=== PATIENT | male | born 1965 | race African-American/Black ===

== ENCOUNTER 2021-10-15 19:09 | Emergency (ER) | payer MEDICAID, SELFPAY ==
[~2021-10-15] VITALS: Ht 172.7 cm; Wt 103.4 kg
--- NOTE | 2021-10-15 19:11 | NUR ---
Patient triaged and placed in waiting room. VSS and patient appears in no acute distress at this time. Accompanied by self, awaiting available bed, and MD notified of need for MSE.
--- NOTE | 2021-10-15 19:12 | NUR ---
Report given to Dr Peterson
--- NOTE | 2021-10-15 19:12 | NUR ---
Pt brought by self, ambulatory, A&Ox4, pt presents to ER with double vision x 3 days, states he has not being taking his diabetes medications or blood pressure medications for the last 10 months, states he did not have insurange coverage, pt BP 174/113, O2 98 %,BS 334 , skin pink and warm, cap refill <3, respirations even and unlabored.
[2021-10-15 19:22] VITALS: BP_SYST 174
--- NOTE | 2021-10-15 20:35 | NUR ---
Dr Peterson evaluating patient in the [facility]
--- NOTE | 2021-10-15 21:00 | NUR ---
PT COMPLAINT OF DIZZYNESS WITH SEVERE BLURRY VISION THAT HAS WORSENED IN THE LAST FOUR DAYS. PT REPORTS NOT TAKING PRESCRIBED MEDICATIONS FOR THE LAST 10 MONTHS DUE TO NOT HAVING MEDICAL INSURANCE. PT DENIES N/V, CHEST PAIN, OR SHORTNESS OF BREATH. PT NOTED TO HAVE DIFFICULTY AMBULATING DUE TO IMPAIRED VISION. PT REPORTS HX OF DM II, HTN, AND OBESITY. PT REPORTS LOOSING 100 LBS SINCE 2019. WILL CONTINUE TO MONITOR
[2021-10-15 21:51] LABS: BILIRUBIN,URINE NEGATIVE (NEGATIVE); CLARITY/URINE CLEAR (CLEAR); COLOR,URINE YELLOW (YELLOW); GLUCOSE,URINE 3+ (NEGATIVE); KETONES,URINE 1+ (NEGATIVE); LEUKOCYTE ESTERASE ,URINE NEGATIVE (NEGATIVE); NITRITE, URINE NEGATIVE (NEGATIVE); PROTEIN URINE 2+ (NEGATIVE); UROBILINOGEN,URINE 0.2 (0.2-1.0)
[2021-10-15 21:52] LABS: BASOPHILS # (AUTO) 0.1 K/uL (0.0-0.2); BASOPHILS % (AUTO) 0.7 % (0.0-2.0); EOSINOPHILS # (AUTO) 0.1 K/uL (0.0-0.4); HEMATOCRIT 46.9 % (36-54); HEMOGLOBIN 15.6 g/dL (14.0-18.0); LYMPHOCYTES # (AUTO) 4.4 K/uL (1.0-5.5); LYMPHOCYTES % (AUTO) 32.4 % (20.5-51.5); MEAN CORPUSCULAR HEMOGLOBIN 30 pg (27-31); MEAN CORPUSCULAR HGB CONC 33 % (32-36); MEAN CORPUSCULAR VOLUME 89 fL (79.0-98.0); MONOCYTES # (AUTO) 0.8 K/uL (0.0-1.0); MONOCYTES % (AUTO) 5.9 % (1.7-9.3); NEUTROPHILS # (AUTO) 8.1 K/uL (1.8-7.7); PLATELET COUNT (AUTO) 241 K/uL (130-430); RED BLOOD CELL COUNT(AUTO) 5.26 MIL/uL (4.2-6.2); RED CELL DISTRIBUTION WIDTH 13.6 % (9.0-15.0); WHITE BLOOD COUNT (AUTO) 13.4 K/uL (4.8-10.8)
[2021-10-15 21:54] LABS: BLOOD, URINE TRACE (NEGATIVE)
[2021-10-15] MEDS ORDERED: IOHEXOL 350 mgI/mL, 150 ML INFUS..BTL IV ONE (21:59)
[2021-10-15 22:04] LABS: BACTERIA,URINE FEW /HPF (None Seen); RBC,URINE 0-3 /HPF (0-3); WBC,URINE 0-3 /HPF (0-3)
[2021-10-15 22:06] LABS: CREATININE 0.87 mg/dL (0.55-1.30)
[2021-10-15 22:06] LABS: BARBITURATE, URINE NEGATIVE (NEG <=200); BENZODIAZEPINE, URINE NEGATIVE (NEG <=150); CANNABINOID, URINE NEGATIVE (NEG <=50); COCAINE, URINE NEGATIVE (NEG <=150); METHAMPHETAMINES SCREEN,URINE NEGATIVE (NEG <=500); OPIATE, URINE NEGATIVE (NEG <=100); PHENCYCLIDINE SCREEN,URINE NEGATIVE (NEG <=25); UR TRICYCLIC ANTIDEPRESSANTS NEGATIVE (NEG <=300); URINE AMPHETAMINE NEGATIVE (NEG <=500); URINE METHADONE NEGATIVE (NEG <=200); URINE OXYCODONE SCREEN NEGATIVE (NEG <=100); URINE PROPOXYPHENE SCREEN NEGATIVE (NEG <=300)
--- NOTE | 2021-10-15 22:12 | NUR ---
AT THE BEDSIDE FOR FOLLOW UP. PT REPORTED TO MD THAT HE DOES NOT WANT TO BE ADMITTED OVERNIGHT FOR FULL WORK UP. PT REPORTS BEING CONCERED ABOUT FURTHER TESTING, BECAUSE HE HAS TO GO TO A NEW JOB TOMORROW. PT UNDERSTANDS THE RISKS AND BENEFITS OF NOT STAYING OVERNIGHT FOR ADMISSION, AND STATED HE WILL RETURN FOR FURTHER MEDICAL SUPPORT SOON.
[2021-10-15 22:14] LABS: TOTAL BILIRUBIN 0.8 mg/dL (0.0-1.0)
[2021-10-15 22:37] LABS: POTASSIUM 2.8 mmol/L (3.5-5.1)
[2021-10-15] MEDS ORDERED: POTASSIUM CHLORIDE 20 MEQ/PKT PACKET PO ONE (23:45)
[2021-10-15] MEDS ORDERED: INSULIN REGULAR, HUMAN 10 UNITS/0.1 ML INJ SUBCUT ONE (23:45)
[2021-10-15] MEDS ORDERED: NACL 0.9% 1,000 ML IV ONE (23:45)
--- NOTE | 2021-10-16 | NUR ---
BP ELEVATED AT 191/101, MD MADE AWARE. PT ASYMPTOMATIC AT THIS TIME, WILL CONTINUE TO MONITOR CLOSELY.
--- NOTE | 2021-10-16 01:49 | NUR ---
PT REPORTS VISION IMPROVEMENT AND RELIEF FROM DIZZYNESS. CONTINUOUS CARDIAC MONITORING IN PLACE. PT STABLE AT THIS TIME. AWAITING DISPOSITION. WILL MONITOR NEEDED
[2021-10-16] MEDS ORDERED: hydrALAZINE HCL 20 MG/ML VIAL IVP ONE (02:15)
[2021-10-16] MEDS ORDERED: LABETALOL 100 MG/ 20ML VIAL IVP ONE (03:45)
--- NOTE | 2021-10-16 03:58 | NUR ---
PT DECIDED TO LEAVE ED DUE TO PRESSING PERSONAL PROBLEMS. AWARE OF PATIENT INTENTIONS OF LEAVING AMA. PT INFORMED OF POSSIBLE RISKS AND CONSEQUENCES OF LEAVING THE FACILITY WITH BLURRY VISION AND HYPERTENSION. PT VERBALIZED UNDERSTANDING. PT AGREED TO RETURN TO ED WITHIN TWO DAYS. PT SIGNED AMA FORM, DISCUSSED MEDICATION AND FOLLOW UP APPOINTMENT WITH PRIMARY CARE PROVIDER. PT BP AT 153/88 AFTER MEDICATIONS GIVEN. PT DISPLAYS NO ABNORMAL SIGNS OR SYMPTOMS AT THIS TIME.IV REMOVED FROM RIGHT AC WITH CATHETER IN PLACE. PT ENCOURAGED TO RETURN IF SYMPTOMS RECUR. PT DISCHARGED WITH ALL BELONGINGS, AMBULATORY IN STABLE CONDITION. ALL QUESTIONS ANSWERED
[2021-10-16 04:22] VITALS: BP_SYST 157
[2021-10-17] MEDS ORDERED: ATOR40TA68 PO (19:24)
[2021-10-17] MEDS ORDERED: LISI40TA13 PO (19:24)
[2021-10-17] MEDS ORDERED: GLIP10TA11 PO (19:24)
[2021-10-17] MEDS ORDERED: LINA5TAB2 PO (19:24)
[2021-10-17] MEDS ORDERED: METO25TA3 PO (19:24)
[2021-10-17] MEDS ORDERED: METF-518 PO (19:24)
[2021-10-17] MEDS ORDERED: CEPH750C7 PO (19:24)
[2021-10-17] MEDS ORDERED: AMLO2.5T2 PO (19:24)
== END 2021-10-16 05:41 | disposition left against medical advice (07) ==
LOC: SED 19:09
DX: H53.8 Other visual disturbances (principal); E11.9 Type 2 diabetes mellitus without complications; Z79.899 Other long term (current) drug therapy; Z20.822 Contact with and (suspected) exposure to COVID-19
CPT/HCPCS: 36415; 70450; 70496; 70498; 71045; 76376; 80053; 80307; 81000; 82962; 84484; 85025; 86886; 86900; 86901; 87426; 93005; 96361; 96372; 96374; 96375; 99285; J0360; J1815; J3490; J7030; Q9967

== ENCOUNTER 2021-10-16 14:03 | Inpatient (IN) | payer MEDICAID, SELFPAY ==
[~2021-10-16] VITALS: Ht 172.7 cm; Wt 103.9 kg
[2021-10-16 14:33] VITALS: BP_SYST 155
--- NOTE | 2021-10-16 14:34 | NUR ---
Patient to ER bed 8 to gown for evaluation. Side rails up. Report given to Cornelia ROSENBAUM.
--- NOTE | 2021-10-16 14:36 | NUR ---
PT CAME IN FROM HOME C/O BLURRED AND DOUBLE VISION X 6 DAYS WITH TINGLING SENSATION TO ALL FINGER TIPS. PT STATES THE HE HAS BEEN OFF OF HIS DM MEDS X 10 MONTHS DUE TO LOSS OF INSURANCE OT IS AMBULATORY, AAOX3, VSS.
--- NOTE | 2021-10-16 14:40 | NUR ---
# 20 gauge angiocath placed to LAC. Use of asceptic technique. Opsite placed over site. Blood return noted. Blood for lab drawn from site. Flushed with 10 cc of normal saline. No evidence of infiltration noted. Patient tolerated well.
--- NOTE | 2021-10-16 14:50 | NUR ---
COVID SWAB DONE AND SENT TO LAB
[2021-10-16 15:08] LABS: BASOPHILS # (AUTO) 0.1 K/uL (0.0-0.2); BASOPHILS % (AUTO) 1.1 % (0.0-2.0); EOSINOPHILS % (AUTO) 0.3 % (0.0-4.0); HEMATOCRIT 45.2 % (36-54); HEMOGLOBIN 14.9 g/dL (14.0-18.0); LYMPHOCYTES # (AUTO) 3.2 K/uL (1.0-5.5); LYMPHOCYTES % (AUTO) 24.3 % (20.5-51.5); MEAN CORPUSCULAR HEMOGLOBIN 29 pg (27-31); MEAN CORPUSCULAR HGB CONC 33 % (32-36); MEAN CORPUSCULAR VOLUME 89 fL (79.0-98.0); MONOCYTES # (AUTO) 0.6 K/uL (0.0-1.0); MONOCYTES % (AUTO) 4.9 % (1.7-9.3); NEUTROPHILS % (AUTO) 69.4 % (40.0-70.0); PLATELET COUNT (AUTO) 247 K/uL (130-430); RED BLOOD CELL COUNT(AUTO) 5.08 MIL/uL (4.2-6.2); RED CELL DISTRIBUTION WIDTH 13.4 % (9.0-15.0)
[2021-10-16 15:23] LABS: CALCIUM 8.3 mg/dL (8.4-11.0); CREATININE 0.73 mg/dL (0.55-1.30); POTASSIUM 3.4 mmol/L (3.5-5.1)
[2021-10-16 15:36] LABS: ALBUMIN 2.9 g/dL (3.4-4.8); TOTAL BILIRUBIN 1.2 mg/dL (0.0-1.0)
--- NOTE | 2021-10-16 17:57 | NUR ---
DINNER TRAY PROVIDED TO PT
--- NOTE | 2021-10-16 18:16 | NUR ---
UVALDO HU AT [facility] WHO STATES PER THIEN BRANDT OPTHAMOLOGIST STATES THAT BASED ON LABS AND IMAGING PT'S VISUAL DISTURBANCES ARE DUE TO DIABETIC RETINOPATHY- NO ADMISSION IN REQUIRED AT [facility]. PT IS TO CALL THE MD OFFICE ON TUESDAY @ AND HAVE AN APPOINTMENT IN OFFICE TUESDAY @ 0930.
--- NOTE | 2021-10-16 18:27 | NUR ---
ADMISSION ORDERS RECEIVED FROM DR. ESCOTO
[2021-10-16] MEDS ORDERED: ONDANSETRON HCL 4 MG/2 ML VIAL IVP PRN (18:45)
--- NOTE | 2021-10-16 19:14 | NUR ---
REPORT GIVEN TO ROBI LUNA FOR CONTINUING CARE
--- NOTE | 2021-10-16 19:55 | NUR ---
Pt awake a/o x4. speech clear and coherent. pt denies pain. denies sob. pt c/o blurry vision / double vision. also c/o elevated bp and elevated blood sugar. pt non compliant with meds x1 year. pt was seen here yesterday and left ama. will continue to monitor.
--- NOTE | 2021-10-16 19:55 | NUR ---
Report received from ROBI Locke for continuation of care
--- NOTE | 2021-10-16 21:18 | NUR ---
Dr Peterson aware of elevated bp, no orders at this time. pt without c/o headache / weakness / sob / pain. will continue to monitor.
--- NOTE | 2021-10-16 21:51 | NUR ---
Pt transported to room 102 tele bed accompanied by rn and dredge pumperGonzales kumar. Bedside report given to ROBI Damon
[2021-10-16 22:00] VITALS: BP_SYST 161
[2021-10-16] MEDS ORDERED: LISINOPRIL 10 MG TABLET (PRINIVIL) PO ONE (23:00)
[2021-10-16] MEDS ORDERED: hydrALAZINE HCL 20 MG/ML VIAL IVP ONE (23:00)
[2021-10-16] MEDS: INSULIN REGULAR, HUMAN 100 UNITS/ML, 10 ML VIAL (humuLIN R) SUBCUT PRN (23:16)
[2021-10-17 01:00] VITALS: BP_SYST 144
[2021-10-17 04:00] VITALS: BP_SYST 125
[2021-10-17] MEDS: INSULIN REGULAR, HUMAN 100 UNITS/ML, 10 ML VIAL (humuLIN R) SUBCUT PRN ×4 (05:39→20:30)
[2021-10-17 07:08] LABS: BASOPHILS # (AUTO) 0.1 K/uL (0.0-0.2); BASOPHILS % (AUTO) 0.8 % (0.0-2.0); EOSINOPHILS # (AUTO) 0.2 K/uL (0.0-0.4); EOSINOPHILS % (AUTO) 1.4 % (0.0-4.0); HEMOGLOBIN 14.3 g/dL (14.0-18.0); LYMPHOCYTES # (AUTO) 3.2 K/uL (1.0-5.5); LYMPHOCYTES % (AUTO) 29.2 % (20.5-51.5); MEAN CORPUSCULAR HEMOGLOBIN 30 pg (27-31); MEAN CORPUSCULAR HGB CONC 34 % (32-36); MEAN CORPUSCULAR VOLUME 88 fL (79.0-98.0); MONOCYTES # (AUTO) 0.9 K/uL (0.0-1.0); MONOCYTES % (AUTO) 7.9 % (1.7-9.3); NEUTROPHILS # (AUTO) 6.7 K/uL (1.8-7.7); NEUTROPHILS % (AUTO) 60.7 % (40.0-70.0); PLATELET COUNT (AUTO) 214 K/uL (130-430); RED BLOOD CELL COUNT(AUTO) 4.77 MIL/uL (4.2-6.2); RED CELL DISTRIBUTION WIDTH 13.3 % (9.0-15.0)
[2021-10-17 07:48] LABS: ALBUMIN 2.5 g/dL (3.4-4.8); CALCIUM 7.8 mg/dL (8.4-11.0); CREATININE 0.76 mg/dL (0.55-1.30); PHOSPHORUS 3.5 mg/dL (2.7-4.5); TOTAL BILIRUBIN 0.9 mg/dL (0.0-1.0)
--- NOTE | 2021-10-17 07:50 | NUR ---
Patient stable; resting comfortably in bed with no distress noted at this time.
[2021-10-17 08:05] LABS: POTASSIUM 2.9 mmol/L (3.5-5.1)
[2021-10-17 08:10] VITALS: BP_SYST 132
--- NOTE | 2021-10-17 08:10 | NUR ---
Patient resting comfortably in bed with Dr. Bush at bedside. Addendum: 10/17/21 at 0813 by Johana Mo RN Scheduled medications given per order. Patient stable at this time.
[2021-10-17] MEDS: LISINOPRIL 10 MG TABLET (PRINIVIL) PO SCH (08:12)
[2021-10-17] MEDS: ASPIRIN 81 MG TAB.CHEW PO SCH (08:12)
--- NOTE | 2021-10-17 08:20 | NUR ---
Dr. Bush made aware of K+ 2.9. New order given and carried out: give 60 mEq KCL po and repeat BMP at 1500 today.
[2021-10-17] MEDS ORDERED: POTASSIUM CHLORIDE 20 MEQ TAB.PRT.SR PO ONE (08:30)
--- NOTE | 2021-10-17 09:43 | NUR ---
Ordered medication given. Patient stable at this time.
--- NOTE | 2021-10-17 10:10 | NUR ---
Patient resting comfortably in bed with FARHAD Holt at bedside.
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
--- NOTE | 2021-10-17 11:49 | NUR ---
PATIENT WAS SEEN FOR PHYSICAL THERAPY EVALUATION TODAY AND SKILLED PT IS NOT INDICATED AT THIS TIME PATIENT IS INDEPENDENT IN FUNCTIONAL MOBILITY WITHOUT ASSISTIVE DEVICE.
--- NOTE | 2021-10-17 12:07 | NUR ---
Checked blood sugar: 299 mg/dl - will cover per sliding scale. Patient stable. Addendum: 10/17/21 at 1217 by Johana Mo RN Covered per sliding scale.
[2021-10-17 12:15] VITALS: BP_SYST 157
--- NOTE | 2021-10-17 13:40 | NUR ---
Patient sitting on side of bed; eating lunch with family member. Patient stable at this time.
--- NOTE | 2021-10-17 15:30 | NUR ---
Patient stable; resting comfortably in bed with family friend at bedside.
[2021-10-17 15:55] LABS: CALCIUM 7.6 mg/dL (8.4-11.0); CREATININE 0.84 mg/dL (0.55-1.30); POTASSIUM 3.5 mmol/L (3.5-5.1)
[2021-10-17 16:00] VITALS: BP_SYST 140
--- NOTE | 2021-10-17 17:13 | NUR ---
Dietitian Recommendations * [facility], [address] Please refer to Nutrition Assessment for details. Addendum: 10/17/21 at [address] Amended: Links added.
--- NOTE | 2021-10-17 17:20 | NUR ---
Checked blood sugar: 263 mg/dl - will cover per sliding scale. Patient stable.
--- NOTE | 2021-10-17 17:36 | NUR ---
CONSULTATION PAGED REASON FOR CONSULTATION:RULE OUT CVA WAS CONSULT CALLED?Y PERSON WHO WAS NOTIFIED:TEXT MESSAGED CONSULTING PHYSICIAN: MANUEL APARICIO LINOLEUM FLOOR INSTALLER SPECIALTY:NEURO LINOLEUM FLOOR INSTALLER PHONE NUMBER:[phone] REQUESTING PHYSICIAN:KOURTNEY WILSON
[2021-10-17 17:42] LABS: BILIRUBIN,URINE NEGATIVE (NEGATIVE); BLOOD, URINE NEGATIVE (NEGATIVE); CLARITY/URINE CLEAR (CLEAR); COLOR,URINE YELLOW (YELLOW); GLUCOSE,URINE 3+ (NEGATIVE); KETONES,URINE TRACE (NEGATIVE); LEUKOCYTE ESTERASE ,URINE NEGATIVE (NEGATIVE); NITRITE, URINE NEGATIVE (NEGATIVE); PROTEIN URINE 2+ (NEGATIVE); UROBILINOGEN,URINE 0.2 (0.2-1.0)
--- NOTE | 2021-10-17 18:15 | NUR ---
Covered per sliding scale. Patient stable throughout shift.
[2021-10-17 18:33] LABS: BACTERIA,URINE RARE /HPF (None Seen); RBC,URINE NONE SEEN /HPF (0-3); WBC,URINE NONE SEEN /HPF (0-3)
[2021-10-17] MEDS ORDERED: LISI40TA13 PO (19:24)
[2021-10-17] MEDS ORDERED: AMLO2.5T2 PO (19:24)
[2021-10-17] MEDS ORDERED: ATOR40TA68 PO (19:24)
[2021-10-17] MEDS ORDERED: CEPH750C7 PO (19:24)
[2021-10-17] MEDS ORDERED: METO25TA3 PO (19:24)
[2021-10-17] MEDS ORDERED: GLIP10TA11 PO (19:24)
[2021-10-17] MEDS ORDERED: LINA5TAB2 PO (19:24)
[2021-10-17] MEDS ORDERED: METF-518 PO (19:24)
[2021-10-17 20:00] VITALS: BP_SYST 165
[2021-10-17] MEDS ORDERED: ZOLPIDEM TARTRATE 5 MG TABLET PO PRN (20:00)
[2021-10-17] MEDS: hydrALAZINE HCL 20 MG/ML VIAL IVP PRN (20:51)
[2021-10-18] VITALS: BP_SYST 150
[2021-10-18] MEDS: INSULIN REGULAR, HUMAN 100 UNITS/ML, 10 ML VIAL (humuLIN R) SUBCUT PRN ×2 (07:17→11:56)
[2021-10-18 07:44] LABS: CALCIUM 8.2 mg/dL (8.4-11.0); CREATININE 0.59 mg/dL (0.55-1.30)
[2021-10-18] MEDS: ASPIRIN 81 MG TAB.CHEW PO SCH (07:57)
[2021-10-18] MEDS: LISINOPRIL 10 MG TABLET (PRINIVIL) PO SCH (08:02)
[2021-10-18 08:03] LABS: BASOPHILS # (AUTO) 0.1 K/uL (0.0-0.2); BASOPHILS % (AUTO) 0.5 % (0.0-2.0); EOSINOPHILS # (AUTO) 0.1 K/uL (0.0-0.4); EOSINOPHILS % (AUTO) 0.8 % (0.0-4.0); HEMATOCRIT 46.6 % (36-54); HEMOGLOBIN 15.3 g/dL (14.0-18.0); LYMPHOCYTES # (AUTO) 3.9 K/uL (1.0-5.5); LYMPHOCYTES % (AUTO) 33.8 % (20.5-51.5); MEAN CORPUSCULAR HEMOGLOBIN 29 pg (27-31); MEAN CORPUSCULAR HGB CONC 33 % (32-36); MEAN CORPUSCULAR VOLUME 90 fL (79.0-98.0); MONOCYTES # (AUTO) 0.8 K/uL (0.0-1.0); MONOCYTES % (AUTO) 6.7 % (1.7-9.3); NEUTROPHILS # (AUTO) 6.8 K/uL (1.8-7.7); NEUTROPHILS % (AUTO) 58.2 % (40.0-70.0); PLATELET COUNT (AUTO) 231 K/uL (130-430); RED BLOOD CELL COUNT(AUTO) 5.19 MIL/uL (4.2-6.2); RED CELL DISTRIBUTION WIDTH 13.8 % (9.0-15.0); WHITE BLOOD COUNT (AUTO) 11.7 K/uL (4.8-10.8)
[2021-10-18] MEDS: hydrALAZINE HCL 20 MG/ML VIAL IVP PRN (08:04)
[2021-10-18 08:15] VITALS: BP_SYST 188
--- NOTE | 2021-10-18 08:15 | NUR ---
Rec'd pt A+O x4, laying in bed at 0700 sleeping. Pt denies pain. IV noted to L AC- not patent, IV inserted to R AC- S/L. CSMW satisfactory. No headache, dizziness, chest pain, N+T or edema. Lungs clear. No sob/cough noted. RA 98%. BSx4. LBM Feb . Pt denies nausea. Void QS. No skin concerns. IND with ADLs and mobility. Tele insitu. Pt still reports blurred vision but states "it seems to be getting a bit better and not as constant as it was." VS- Bp elevated-IV hydralazine administered. Med accepting. Will continue to monitor.
[2021-10-18 08:38] LABS: CHOLESTEROL 207 mg/dL (<200); HDL CHOLESTEROL 90 mg/dL (>45); LDL CHOLESTEROL 91 mg/dL (<100); TRIGLYCERIDES 49 mg/dL (30-150)
[2021-10-18] MEDS ORDERED: ATORVASTATIN 20 MG TABLET PO SCH (09:00)
[2021-10-18] MEDS ORDERED: GABAPENTIN 100 MG CAPSULE PO ONE (09:30)
[2021-10-18 09:40] VITALS: BP_SYST 149
[2021-10-18 11:58] VITALS: BP_SYST 174
[2021-10-18 13:16] VITALS: BP_SYST 174
[2021-10-18] MEDS ORDERED: INSU100V9 SUBCUT (13:16)
[2021-10-18] MEDS ORDERED: LISI10TA29 PO (13:16)
[2021-10-18] MEDS ORDERED: NEU100 PO (13:16)
[2021-10-18] MEDS ORDERED: ASA81 PO (13:16)
--- NOTE | 2021-10-18 15:30 | NUR ---
Pt discharged per orders. IV removed. DC docs reviewed. All questions answered. No home meds to return. All belongings taken home with pt. Pt aware to cook pickled meat prescriptions at pharmacy. Pt wheeled out in wheelchair to families vehicle.
[2021-10-18] MEDS ORDERED: GABAPENTIN 100 MG CAPSULE PO SCH (21:00)
[2021-10-18] MEDS ORDERED: INSULIN GLARGINE 100 UNITS/ML 10 ML VIAL SUBCUT SCH (21:00)
== END 2021-10-18 15:39 | disposition home or self-care (01) | DRG 48 ==
LOC: SED 14:03 → STU 18:25
PROVIDERS: ADMIT Student in an Organized Health Care Education/Training Program; ATTEND Student in an Organized Health Care Education/Training Program
DX: H49.21 Sixth [abducent] nerve palsy, right eye (principal); E44.0 Moderate protein-calorie malnutrition; E83.51 Hypocalcemia; E87.1 Hypo-osmolality and hyponatremia; E11.65 Type 2 diabetes mellitus with hyperglycemia; E87.6 Hypokalemia; I10 Essential (primary) hypertension; E78.5 Hyperlipidemia, unspecified; M19.90 Unspecified osteoarthritis, unspecified site; Z83.3 Family history of diabetes mellitus; Z68.34 Body mass index [BMI] 34.0-34.9, adult
CPT/HCPCS: 36415; 80048; 80053; 80061; 81000; 82962; 83036; 83735; 84100; 85025; 87081; 93005; 99285; G0378; J0360; J1815

== ENCOUNTER 2022-01-11 12:50 | Emergency (ER) | payer MEDICAID ==
[~2022-01-11] VITALS: Ht 172.7 cm; Wt 90.7 kg
[~2022-01-11 12:50] MED LIST: ASA81 PO; ATOR40TA68 PO; INSU100V9 SUBCUT; LISI40TA13 PO; NEU100 PO
[2022-01-11 12:54] VITALS: BP_SYST 126
--- NOTE | 2022-01-11 13:00 | NUR ---
Patient arrived to ED bed 8 for c/o chest pain and testicle pain for the past few days. Patient explained that it got progressively worse today. Patient denies taking medications for the pain. Patient is alert and oriented x4. No neuro deficits. Respiration even and unlabored. Patient is responsive to verbal commands. EKG performed for patient. Patient placed on heart monitor. Vital signs stable. Patient's brother in law at bedside.
--- NOTE | 2022-01-11 13:01 | NUR ---
Patient to ER bed 8 to gown for evaluation. Side rails up. Report given to Tomasz ROSENBAUM.
--- NOTE | 2022-01-11 13:05 | NUR ---
ER at bedside examining patient.
--- NOTE | 2022-01-11 13:21 | NUR ---
Patient went for quick scan in radiology.
[2022-01-11 13:47] LABS: BASOPHILS # (AUTO) 0.2 K/uL (0.0-0.2); EOSINOPHILS # (AUTO) 0.1 K/uL (0.0-0.4); EOSINOPHILS % (AUTO) 0.8 % (0.0-4.0); HEMATOCRIT 39.1 % (36-54); HEMOGLOBIN 13.3 g/dL (14.0-18.0); LYMPHOCYTES # (AUTO) 4.9 K/uL (1.0-5.5); LYMPHOCYTES % (AUTO) 32.2 % (20.5-51.5); MEAN CORPUSCULAR HEMOGLOBIN 30 pg (27-31); MEAN CORPUSCULAR HGB CONC 34 % (32-36); MEAN CORPUSCULAR VOLUME 88 fL (79.0-98.0); MONOCYTES % (AUTO) 6.2 % (1.7-9.3); NEUTROPHILS # (AUTO) 9.2 K/uL (1.8-7.7); NEUTROPHILS % (AUTO) 59.8 % (40.0-70.0); PLATELET COUNT (AUTO) 211 K/uL (130-430); RED BLOOD CELL COUNT(AUTO) 4.44 MIL/uL (4.2-6.2); RED CELL DISTRIBUTION WIDTH 13.6 % (9.0-15.0); WHITE BLOOD COUNT (AUTO) 15.3 K/uL (4.8-10.8)
[2022-01-11 13:54] LABS: ANION GAP 7 (5-15); CALCIUM 8.3 mg/dL (8.4-11.0); CHLORIDE 102 mmol/L (98-107); CREATININE 1.17 mg/dL (0.55-1.30); GFR AFRICAN AMERICAN 82 mL/min (>90); GLUCOSE 104 mg/dL (70-99); POTASSIUM 3.4 mmol/L (3.5-5.1); SODIUM SERUM 139 mmol/L (136-145); UREA NITROGEN, BLOOD 20 mg/dL (8-21)
[2022-01-11 14:03] LABS: ALANINE AMINOTRANSFERASE 16 U/L (12-78); ASPARTATE AMINOTRANSFERASE 19 U/L (10-37); TOTAL BILIRUBIN 1.4 mg/dL (0.0-1.0)
[2022-01-11 14:10] LABS: C-REACTIVE PROTEIN QUANT < 0.2 mg/dL (0-0.5)
[2022-01-11 14:54] LABS: BILIRUBIN,URINE 1+ (NEGATIVE); BLOOD, URINE NEGATIVE (NEGATIVE); CLARITY/URINE CLEAR (CLEAR); COLOR,URINE YELLOW (YELLOW); GLUCOSE,URINE NEGATIVE (NEGATIVE); KETONES,URINE TRACE (NEGATIVE); LEUKOCYTE ESTERASE ,URINE NEGATIVE (NEGATIVE); NITRITE, URINE NEGATIVE (NEGATIVE); PROTEIN URINE 3+ (NEGATIVE)
[2022-01-11 15:14] LABS: BACTERIA,URINE RARE /HPF (None Seen); HYALINE CASTS, URINE 0-10 /LPF (None Seen); MUCUS,URINE 2+ /LPF (None Seen); RBC,URINE 0-3 /HPF (0-3); WBC,URINE 0-3 /HPF (0-3)
[2022-01-11] MEDS ORDERED: SILD50TA PO (15:29)
[2022-01-11] MEDS ORDERED: IBUP-1971 PO (15:29)
[2022-01-11] MEDS ORDERED: HYDR-3917 PO (15:47)
--- NOTE | 2022-01-11 15:58 | NUR ---
Patient given written and verbal discharge instructions and verbalizes understanding. ER MD discussed with patient the results and treatment provided. Patient in stable condition. ID arm band removed. Rx of NORCO,MOTRIN,VIAGRA given. Patient educated on pain management and to follow up with PMD. Pain Scale 3. Opportunity for questions provided and answered. Medication side effect fact sheet provided.
[2022-01-11 16:02] VITALS: BP_SYST 126
== END 2022-01-11 15:58 | disposition home or self-care (01) ==
LOC: SED 12:50
DX: R07.89 Other chest pain (principal); R10.9 Unspecified abdominal pain; E11.9 Type 2 diabetes mellitus without complications; Z79.899 Other long term (current) drug therapy; Z79.4 Long term (current) use of insulin
CPT/HCPCS: 36415; 71045; 76376; 80053; 81000; 83605; 84484; 85025; 86140; 93005; 99285